=== PATIENT | female | born 1980 | race American Indian/Alaskan Native ===

== ENCOUNTER 2018-06-19 13:58 | Emergency (ER) | payer SELFPAY ==
[2018-06-19] MEDS ORDERED: PEPCID IV ONE (14:44)
[2018-06-19] MEDS ORDERED: ADRENALINE P/F SUB-Q ONE (14:45)
[2018-06-19] MEDS ORDERED: BENADRYL IV ONE (14:45)
[2018-06-19] MEDS ORDERED: NACL 0.9% 1000 ML 1,000 ML IV ONE (14:46)
[2018-06-19] MEDS ORDERED: ADRENALIN ONE (14:56)
[2018-06-19 15:47] LABS: Hematocrit 37.1 % (30.3-42.9); Mean Corpuscular HGB Conc 35 % (30-34); Mean Corpuscular Hemoglobin 35 pg (28-32); Mean Corpuscular Volume 100 fl (79-97); Platelet Count 202 K/mm3 (140-440); Red Blood Count 3.72 M/mm3 (3.65-5.03); Red Cell Distribution Width 13.1 % (13.2-15.2)
[2018-06-19 15:49] LABS: BUN/Creatinine Ratio 14; Blood Urea Nitrogen 11 mg/dL (7-17); Calcium 8.5 mg/dL (8.4-10.2); Hemolysis Index 18
--- NOTE | 2018-06-19 15:57 | Emergency Department Report ---
HPI - General Chief Complaint: Allergic Reaction Time Seen by Provider: 06/19/18 14:38 - HPI HPI: 37-year-old female presents to the emergency department with a complaint of a possible allergic reaction. The patient has been getting hives and some swelling of the tongue for the past 2 days. It was mostly patchy areas of the hives. However it started increasing today and started feeling like it involved her tongue so she went to urgent care. She was given a shot of Decadron and discharge with some steroids. However the rash increased and started going to the bilateral upper extremities, lower extremities, chest, abdomen and back and continued to involve the tongue so they came to the emergency department for further evaluation. She has no known medicinal, environmental or food allergies and says that there are no new products or foods that she has used recently. She denies any shortness of breath, drooling , throat pain, lip swelling. She does have a history of sarcoidosis for which she takes Azathropine and Hydroxychloroquine for the past year. ED Past Medical Hx - Past Medical History Hx Arthritis: Yes Additional medical history: sarcoidosis - Surgical History Additional Surgical History: lung biopsy. - Social History Smoking Status: Current Every Day Smoker Substance Use Type: Alcohol - Medications Home Medications: Home Medications Medication Instructions Recorded Confirmed Last Taken Type Acetaminophen/Codeine [Tylenol #3] 1 tab PO Q6H PRN #14 tab 06/23/14 Unknown Rx ED Review of Systems ROS: Stated complaint: HIVES, TONGUE SWELLING Other details as noted in HPI Comment: All other systems reviewed and negative Constitutional: denies: chills, fever Eyes: denies: eye pain, eye discharge, vision change ENT: denies: ear pain, throat pain Respiratory: denies: cough, shortness of breath, wheezing Cardiovascular: denies: chest pain, palpitations Gastrointestinal: denies: abdominal pain, nausea, diarrhea Genitourinary: denies: urgency, dysuria, discharge Musculoskeletal: denies: back pain, joint swelling, arthralgia Skin: rash, pruritus Neurological: denies: headache, weakness, paresthesias Physical Exam - Physical Exam Vital Signs: Vital Signs 06/19/18 06/19/18 14:06 15:09 Temperature 98.5 F Pulse Rate 100 H Respiratory 18 16 Rate Blood Pressure 132/79 O2 Sat by Pulse 96 99 Oximetry Physical Exam: GENERAL: The patient is well-developed well-nourished. HENT: Normocephalic. Atraumatic. Patient has moist mucous membranes. Oropharynx is clear. No drooling or trismus. No appreciable tongue swelling. EYES: Extraocular motions are intact. Pupils equal reactive to light bilaterally. NECK: Supple. Trachea is midline. CHEST/LUNGS: Clear to auscultation. There is no respiratory distress noted. HEART/CARDIOVASCULAR: Regular. There is no tachycardia. There is no murmur. ABDOMEN: Abdomen is soft, nontender. Patient has normal bowel sounds. There is no abdominal distention. SKIN: Skin is warm and dry. Patient has urticarial lesions to her entire body including the face, chest, abdomen, back and extremities. NEURO: The patient is awake, alert, and oriented. The patient is cooperative. The patient has no focal neurologic deficits. The patient has normal speech. MUSCULOSKELETAL: There is no tenderness or deformity. There is no limitation range of motion. There is no evidence of acute injury. ED Course Vital Signs 06/19/18 06/19/18 14:06 15:09 Temperature 98.5 F Pulse Rate 100 H Respiratory 18 16 Rate Blood Pressure 132/79 O2 Sat by Pulse 96 99 Oximetry ED Medical Decision Making - Lab Data Result diagrams: 06/19/18 15:26 06/19/18 15:26 - Medical Decision Making Patient presents with generalized urticaria as well as the complaint of some intermittent tongue swelling. On examination she does have urticaria to her entire body but I do not see any appreciable tongue swelling at this time. There is no drooling or trismus. She has a normal-appearing posterior pharynx with a mallampati of 1. The patient was given IV fluid, steroids, Pepcid, Benadryl and subcutaneous epinephrine. She was reevaluated multiple times for multiple hours and has shown great improvement. Almost all of the urticaria has resolved. There is been no return of the tongue swelling. Vital signs of an stable throughout her ED course. She appears safe for discharge home at this time. She ought he has steroids to take from the urgent care. She will use [id number] Benadryl as necessary. She will follow up with her primary care physician and may need to see an asphalt mixing machine operator in the near future. She will return to the ER with any worsening of her symptoms or any acute distress. - Differential Diagnosis complement deficiency, angioedema, allergic reaction Critical Care Time: No Critical care attestation.: If time is entered above; I have spent that time in minutes in the direct care of this critically ill patient, excluding procedure time. ED Disposition Clinical Impression: Urticaria Allergic reaction Qualifiers: Encounter type: initial encounter Qualified Code(s): T78.40XA - Allergy, unspecified, initial encounter Disposition: DC- TO HOME OR SELFCARE Is pt being admited?: No Condition: Stable Instructions: Urticaria (ED) Additional Instructions: Please take the steroids that were prescribed to him by the urgent care. You can add [id number] Benadryl as needed for hives and/or itching. Return to the emergency Department with any worsening of your symptoms or any acute distress. Follow-up with your primary care physician and you may need to see an asphalt mixing machine operator in the near future. Referrals: PRIMARY CARE, [Primary Care Provider] - [facility] Time of Disposition: 17:53
[2018-06-19 16:43] LABS: Band Neutrophils # (Manual) 0.5 K/mm3; Basophils % (Manual) 0 % (0.0-1.8); Eosinophils % (Manual) 0 % (0.0-4.3); Monocytes % (Manual) 0 % (0.0-7.3); Total Cells Counted 100
[2018-06-19 16:44] LABS: Ovalocytes Few
[2018-06-19 18:01] VITALS: BP 100/57
== END 2018-06-19 18:01 | disposition home or self-care (01) ==
LOC: ED 13:58
DX: T78.40XA Allergy, unspecified, initial encounter (principal); M19.90 Unspecified osteoarthritis, unspecified site; F17.200 Nicotine dependence, unspecified, uncomplicated; X58.XXXA Exposure to other specified factors, initial encounter
CPT/HCPCS: 36415; 80048; 85007; 85025; 96372; 96374; 96375; 99283; J0171; J1200; J2930; J7030